=== PATIENT | female | born 1995 | race Caucasian/White ===

== ENCOUNTER 2016-04-30 17:47 | Emergency (ER) | payer SELFPAY ==
[~2016-04-30] VITALS: Ht 152.4 cm; Wt 45.5 kg
[~2016-04-30 17:47] MED LIST: CELEXA 20MG20 MG/TAB PO; MOTRIN 600600 MG/TAB PO; PERCOCET 325 MG1 TA2 PO; PRENATAL1 TA1 PO; ULTRAM 50MG TAB50 MG PO; ZOFRAN8 MG PO
[2016-04-30 17:50] VITALS: BP 133/87; PULSE 110; TEMP 97.6
[2016-04-30] MEDS ORDERED: XANAX 0.5MG0.5 MG PO (17:53)
== END 2016-04-30 18:09 | disposition left against medical advice (07) ==
LOC: COL.ER 17:47
DX: R07.89 Other chest pain (principal); Z53.21 Procedure and treatment not carried out due to patient leaving prior to being seen by health care provider

== ENCOUNTER 2016-08-01 22:58 | Emergency (ER) | payer SELFPAY ==
[~2016-08-01] VITALS: Ht 152.4 cm; Wt 44.5 kg
[~2016-08-01 22:58] MED LIST changes: +XANAX 0.5MG0.5 MG PO
[2016-08-01 23:00] VITALS: BP 106/45; PULSE 74; TEMP 98.8
== END 2016-08-02 00:39 | disposition home or self-care (01) ==
LOC: COL.ER 22:58
DX: S60.221A Contusion of right hand, initial encounter (principal); W22.8XXA Striking against or struck by other objects, initial encounter; Y92.009 Unspecified place in unspecified non-institutional (private) residence as the place of occurrence of the external cause